=== PATIENT | male | born 2000 | race Hispanic/Latino ===

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

== ENCOUNTER 2021-02-07 07:17 | Emergency (ER) | payer OTHER ==
[2021-02-07 08:21] LABS: Mean Corpuscular HGB CONC 33.7 g/dL (32.0-36.0); Mean Corpuscular Hemoglobin 27.3 pg (25.0-35.0); Mean Platelet Volume 8.3 fL (7.4-10.4); Platelet Count 208 thou/uL (130-400); RBC Distribution Width 11.3 % (11.5-14.5); White Blood Cell (WBC) Count 8.5 thou/uL (4.8-10.8)
[2021-02-07 08:36] LABS: ALT (SGPT) 10 U/L (8-55); AST (SGOT) 15 U/L (10-45); Albumin 4.5 g/dL (3.5-5.0); Alkaline Phosphatase 52 U/L (50-130); Anion Gap 15 mmol/L (10-20); BUN (Urea Nitrogen) 13 mg/dL (8.4-21.0); Bilirubin, Total 0.6 mg/dL (0.2-1.2); CK (CPK) 164 U/L (30-200); Calc. Creatinine Clearance 0 mL/min (70-130); Calcium 9.3 mg/dL (7.8-10.44); Carbon Dioxide 24 mmol/L (22-29); Chloride 104 mmol/L (98-107); Globulin 2.4 g/dL (2.4-3.5); Glucose 87 mg/dL (70-105); Potassium 3.5 mmol/L (3.5-5.1); Protein, Total 6.9 g/dL (6.0-8.3); Sodium 139 mmol/L (136-145)
[2021-02-07 08:40] LABS: Band 1 % (5-11); Eosinophils 2 % (0-10); Lymphocytes 58 % (28-48); MDiff Complete? YES; Monocytes 7 % (0-4); Neutrophil 30 % (31-61); RBC Morphology Normal; Reactive Lymphocytes 2 % (0-10)
== END 2021-02-07 09:29 | disposition home or self-care (01) ==
LOC: ERS 07:17
DX: E86.0 Dehydration (principal); R53.1 Weakness; J45.909 Unspecified asthma, uncomplicated
CPT/HCPCS: 71045; 80053; 82550; 83735; 85025; 94760